=== PATIENT | male | born 1980 | race Caucasian/White ===

== ENCOUNTER 2024-08-31 14:46 | Emergency (ER) | payer OTHER, SELFPAY ==
[2024-08-31 14:48] VITALS: BP 129/74; PULSE 68; RESP 16; TEMP 36.6; O2SAT 98; BMI 25.0
--- NOTE | 2024-08-31 15:16 | EX.ED.DYSGE1 ---
HPI History of Present Illness Chief Complaint: Other, Pain/Inj Informant: patient and spouse/S.O. Narrative Narrative: Patient is a 43-year-old male with history of GERD and anxiety presenting with intermittent headaches for the past 4 days. He states that for started when he was doing his workout. 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 He was at his maximal intensity when he suddenly had sharp/severe pain on his left posterior scalp radiating towards his head. He states the severe pain lasted for couple minutes but then for couple hours afterwards he had a more mild headache that felt more like a sinus headache. This happened again with another exercise when he was at his maximal intensity. Today he was having intercourse and when he climaxed he had severe pain again and started screaming. He denies any associated vision changes. He notes that he has had some longstanding tingling in his left arm and thinks maybe it has been a bit worse this week but he is not sure. Denies any injuries. Denies any recent neck manipulations. Denies any vision changes or speech changes. Denies any known personal or family history of aneurysms, bleeding or clotting disorders. Notes that he is on doctor prescribed testosterone therapy. This is not new however. Denies any new supplements. Does take nonstimulant free workouts. No other complaints or concerns reported at this time. PFSH PFSH Medical History no medical history Allergy/AdvReac Type Severity Reaction Status Date / Time Penicillins (PCN) Allergy Mild Hives Verified 08/31/24 14:48 Family History no significant family his Surgical History no surgical history Social History Smoking Status: Never smoker ROS ROS ED Constitutional Constitutional ED: Denies chills or fever(s) Cardiovascular Cardiovascular: Denies chest pain Respiratory/Chest Respiratory/Chest: Denies cough or dyspnea Gastrointestinal Gastrointestinal: Denies nausea or vomiting Musculoskeletal Musculoskeletal: Denies myalgias or neck pain Integumentary Denies rash Neurologic Neurologic: Reports headache(s) and paresthesias LUE; Denies weakness Psychiatric Psychiatric: Denies anxiety or depression Hematologic/Lymphatic Hematologic/Lymphatic: Denies easy bleeding or easy bruising EXAM Physical Exam Const Vital Signs: 08/31/24 14:48 08/31/24 14:57 08/31/24 16:47 Temperature 97.9 F Temperature Source Oral Pulse Rate 68 64 Respiratory Rate 16 16 Respiratory Effort Normal Non-Labored Respiratory Pattern Normal Blood Pressure 129/74 H 118/72 Blood Pressure Mean 92 87 Pulse Ox 98 98 Oxygen Delivery Method Room Air 08/31/24 17:12 Temperature 98.6 F Temperature Source Pulse Rate 64 Respiratory Rate 16 Respiratory Effort Respiratory Pattern Blood Pressure 118/72 Blood Pressure Mean 87 Pulse Ox 98 Oxygen Delivery Method Positive well nourished and well developed General Appearance ED: well developed and NAD HEENT Reports TM's clear and moist mucous membranes HEENT Narrative: Head normocephalic atraumatic. No reproducible tenderness. Patient points to his left parietal scalp as his area of where he has the pain. No overlying rash. No reproducible tenderness to the neck. Negative for trauma Tympanic Membrane ED: Yes TM's clear Eyes PERRL Neck supple Chest Wall inspection of chest normal and palpation of chest normal Resp normal respiratory effort and clear to auscultation bilaterally Cardio regular rate, regular rhythm and no murmurs Extremity normal to inspection General Extremety ED: Negative for edema or tenderness General Extremity: Negative for edema Neuro oriented x3, CN's II-XII intact bilaterally and no sensory deficits noted Neuro Narrative: NIH equals 0 Sensorium / Orientation: alert Motor Exam: strength 5/5 throughout; Negative for general weakness Psych mental status grossly normal Skin no rashes or lesions noted and no wounds MDM MDM MDM Narrative Medical decision making narrative: Patient evaluated for severe headache this been intermittent for the past 4 days associated with exertion. He currently has a normal neurologic exam and only has a minimal headache. He reports taking Tylenol earlier today. Differential includes brain aneurysm, vertebral artery dissection, dural venous sinus thrombosis and subarachnoid hemorrhage as well as occipital neuralgia and muscle skeletal pain. He i does not have an overlying rash and low suspicion for shingles. Will obtain CTA of the head and neck to look for aneurysm and spoke with radiology about also getting of venous phase to look for dural venous sinus thrombosis. Will obtain basic labs. Lab Data Labs: Laboratory Results - last 24 hr 08/31/24 15:22 WBC 10.9 RBC 4.75 Hgb 14.7 Hct 44.2 MCV 93.1 MCH 30.9 MCHC 33.3 RDW Std Deviation 48.1 H RDW Coeff of Laith 13.9 Plt Count 138 L MPV 12.5 H Immature Gran % (Auto) 0.400 Neut % (Auto) 72.8 H Lymph % (Auto) 16.6 L [place] % (Auto) 9.1 Eos % (Auto) 0.6 Baso % (Auto) 0.5 Absolute Neuts (auto) 7.9 H Absolute Lymphs (auto) 1.80 Nucleated RBC % 0 Reactive Lymphocytes 1+ Plt Morphology Comment LARGE PT 15.6 H INR 1.2 APTT 27.4 Sodium 138 Potassium 4.2 Chloride 100 Carbon Dioxide 26.8 Anion Gap 11 BUN 32 H Creatinine 1.30 H Estim Creat Clear Calc 78.84 Est GFR (MDRD) Non-Af 70 BUN/Creatinine Ratio 24.5 H Glucose 99 Calcium 9.6 Radiography Diagnostic Testing: Clinical Impression(s) from Imaging Studies Head/Neck CTA 08/31/24 15:34 IMPRESSION: 1. No large vessel occlusion, AVM or aneurysm. 2. Unremarkable CT head. Reading Location: [facility] Discharge Plan Triage Chief Complaint: Other, Pain/Inj ED Provider: Jessica Stauffer Dx/Rx/DC Orders Clinical Impression: Headache Instructions: ED Headache, Tension, ED Occipital Neuralgia Primary Care Provider: Mónica Jameson Referrals: Omar Ellison MD [Non-Staff -Ordering Privileges] - Roxy Doctor,Out of [Non-Staff] - Activity Restrictions/Additional Instructions: Your CTA of your head and neck was normal today with no findings consistent with an aneurysm, bleeding or abnormal vessels. As we discussed this could be muscle skeletal pain, pinched nerve in your scalp called occipital neuralgia and much less likely a more severe process. I recommend follow-up with your primary care doctor and/or neurology especially if this continues. Per discussion please return if you have a progression or worsening your symptoms or further concerns. If you develop any acute neurologic symptoms such as vision changes, speech changes or sudden and or neurology associate this continues. Per discussion please return if you have a progression or worsening your symptoms or further concerns. If you develop any acute neurologic symptoms such as vision changes, speech changes or sudden numbness or weakness on one side of your body please immediately return to the emergency room. Avoid heavy exertional activity that brings on these episodes until you can follow-up with your primary care doctor or neurology. Print Language: [place] Disposition Disposition: Home, Self Care Discharge Date/Time: 08/31/24 17:12
[2024-08-31 15:28] LABS: Absolute Neutrophil Count 7.9 X10^3/uL (2.0-7.7); Basophil# 0.05 X10^3/uL; Basophil% 0.5 % (0-1); Eosinophil# 0.06 X10^3/uL; Eosinophils% 0.6 % (0-5); Hematocrit 44.2 % (40-54); Hemoglobin 14.7 g/dL (13.0-16.5); Lymphocyte % 16.6 % (19-41); Mean Corp Hgb Conc 33.3 g/dL (32-36); Mean Corpuscular Hgb 30.9 pg (27.0-32.0); Mean Corpuscular Volume 93.1 fL (80-94); Mean Platelet Vol. 12.5 fl (6.2-12.0); Monocyte# 0.99 X10^3/uL; Monocyte% 9.1 % (0-10); NRBC Flagged by Analyzer 0 % (0-5); Neutrophil # 7.92 X10^3/uL (2.7-7.7); Neutrophil % 72.8 % (47-70); POSITIVE MORPHOLOGY YES; Platelet Count 138 K/mm3 (150-450); RBC Distribution Width CV 13.9 % (11.6-14.6); RBC Distribution Width SD 48.1 fl (35.1-43.9); Red Blood Count 4.75 M/mm3 (4.6-6.2); White Blood Count 10.9 K/mm3 (4.4-11.0)
--- NOTE | 2024-08-31 15:34 | CT_ITS ---
PROCEDURE: CTA HEAD AND NECK W/ CONTRAST 08/31/2024 REASON FOR EXAM: SUDDEN ONSET HEADACHE, LEFT HEAD PAIN TECHNIQUE: CTA imaging of the head and neck from the aortic arch to the skull vertex with intravenous contrast. Coronal and Sagittal reconstruction series were provided. 3D, 3D post processing, 3D reconstructions, Maximum intensity projection (MIPs) Volume rendering and Shaded surface rendering was provided. CONTRAST: Isovue 370 VOLUME: 100ML One or more dose reduction techniques were used (e.g., Automated exposure control, adjustment of the mA and/or kV according to patient size, use of iterative reconstruction technique). RADIATION DOSE SUMMARY: CTDlvol: 100 mGy DLP: 1800 mGycm COMPARISON: None. FINDINGS: Noncontrast CT head: No acute intracranial hemorrhage or herniation. The valentin-white matter interfaces are maintained. The basal cisterns are patent. No acute calvarial fracture or scalp hematoma. The paranasal sinuses and mastoid air cells are well-aerated. CTA neck: Standard three-vessel aortic arch without significant calcification or focal narrowing. The bilateral vertebral arteries are widely patent without focal stenosis or calcification. The bilateral cervical carotid arteries are widely patent without focal stenosis by NASCET criteria. CTA head: The bilateral anterior, middle and posterior cerebral arteries are widely patent. No aneurysm or AVM. The intracranial vertebral arteries and basilar arteries are widely patent. Major venous structures: Unremarkable. Other findings: Unremarkable thyroid. The biapical lungs are clear. Mild straightening of the normal cervical lordosis. CT/CTA Head AND Neck W/ Contrast IMPRESSION: 1. No large vessel occlusion, AVM or aneurysm. 2. Unremarkable CT head. Reading Location: [id number]
[2024-08-31 15:39] LABS: International Normalized Ratio 1.2; Partial Thromboplast Time 27.4 Seconds (24.1-36.2); Prothrombin Time (Protime)PT. 15.6 SECONDS (11.7-14.9)
[2024-08-31 15:43] LABS: Anion Gap 11 (5-15); BUN 32 mg/dL (4-19); BUN/Creat Ratio 24.5 RATIO (10-20); Calcium,Total 9.6 mg/dL (7.6-11.0); Carbon Dioxide 26.8 mmol/L (21.0-32.0); Chloride 100 mmol/L (98-108); EST Glomerular Filtration Rate 70 (>60); Estimated Creatinine Clearance 78.84 ml/min (50-250); Glucose 99 mg/dL (70-99); Potassium 4.2 mmol/L (3.3-5.1); Sodium Level 138 mmol/L (133-145)
[2024-08-31 15:49] LABS: Differential Indicated SCAN CRITERIA MET
[2024-08-31 15:50] LABS: Reactive Lymphocyte 1+
[2024-08-31 15:51] LABS: Platelet Morphology LARGE
[2024-08-31 16:47] VITALS: BP 118/72; PULSE 64; RESP 16; O2SAT 98
[2024-08-31 17:12] VITALS: BP 118/72; PULSE 64; RESP 16; TEMP 37; O2SAT 98
== END 2024-08-31 17:12 | disposition home or self-care (01) ==
PROVIDERS: Emergency Provider Emergency Medicine; PCP Internal Medicine; Visit Provider Emergency Medicine
DX: R51.9 Headache, unspecified (principal); R20.2 Paresthesia of skin
CPT/HCPCS: 70496; 70498; 80048; 85025; 85610; 85730; 99282; Q9967; A4216